=== PATIENT | female | born 1995 | race Caucasian/White ===

== ENCOUNTER 2023-09-05 11:41 | Emergency (ER) | payer OTHER ==
[~2023-09-05] VITALS: Ht 165.1 cm; Wt 89.8 kg
[2023-09-05] MEDS ORDERED: MORPHINE SULFATE INJ 2 MG/ML DISP.SYRIN IV ONE (12:30)
[2023-09-05] MEDS: IV NS 0.9% 1,000 ML BAG IV ONE (12:30)
[2023-09-05] MEDS ORDERED: ONDANSETRON HCL/PF 4 MG/2 ML VIAL IV ONE (12:30)
[2023-09-05] MEDS: KETOROLAC TROMETHAMINE 15 MG/ML VIAL IV ONE (13:00)
[2023-09-05] MEDS: diphenhydrAMINE HCL 50 MG/ML VIAL IV ONE (13:00)
[2023-09-05] MEDS: METOCLOPRAMIDE HCL 10 MG/2 ML VIAL IV ONE (13:00)
[2023-09-05] MEDS ORDERED: KETOROLAC TROMETHAMINE 15 MG/ML VIAL ONE (13:17)
[2023-09-05] MEDS ORDERED: diphenhydrAMINE HCL 50 MG/ML VIAL ONE (13:17)
[2023-09-05] MEDS ORDERED: METOCLOPRAMIDE HCL 10 MG/2 ML VIAL ONE (13:18)
[2023-09-05] MEDS ORDERED: CIPR500T5 PO (14:02)
[2023-09-05] MEDS ORDERED: ONDA4TAB5 PO (14:02)
[2023-09-05] MEDS ORDERED: IBUP-1955 PO (14:02)
[2023-09-05 14:24] VITALS: BP 119/64; TEMP 98.5; O2SAT 95
== END 2023-09-05 14:25 | disposition home or self-care (01) ==
LOC: ER 11:56
DX: R11.2 Nausea with vomiting, unspecified (principal); R19.7 Diarrhea, unspecified; R10.9 Unspecified abdominal pain; G43.909 Migraine, unspecified, not intractable, without status migrainosus; R53.83 Other fatigue; R53.1 Weakness; Z60.2 Problems related to living alone
CPT/HCPCS: 99284; 96374; 96361; 96375 ×2; J1200; J2765; J7030; J1885

== ENCOUNTER 2023-12-05 23:43 | Emergency (ER) | payer OTHER ==
[~2023-12-05] VITALS: Ht 165.1 cm; Wt 87.1 kg
[~2023-12-05 23:43] MED LIST: CIPR500T5 PO; IBUP-1955 PO; ONDA4TAB5 PO
[2023-12-06 02:15] LABS: APPEARANCE,URINE TURBID (CLEAR); BILIRUBIN,URINE NEGATIVE (NEGATIVE); BLOOD, URINE 3+ Ery/uL (NEGATIVE); COLOR,URINE RED (YELLOW); KETONES,URINE 1+ mg/dL (NEGATIVE); LEUKOCYTE ESTERASE ,URINE 2+ (NEGATIVE); NITRITE, URINE POSITIVE (NEGATIVE); PROTEIN,URINE 3+ mg/dl (NEGATIVE); UGLUCOSE NEGATIVE (NEGATIVE)
[2023-12-06 02:19] LABS: BASOPHILS # (AUTO) 0.1 K/uL (0.0-0.2); BASOPHILS % (AUTO) 0.9 % (0.0-2.0); EOSINOPHILS # (AUTO) 0.2 K/uL (0.0-0.7); EOSINOPHILS % (AUTO) 1.9 % (0.0-6.0); HEMATOCRIT 37 % (33-45); HEMOGLOBIN 12.7 g/dL (11.5-14.8); LYMPHOCYTES # (AUTO) 4.1 K/uL (0.8-4.8); LYMPHOCYTES % (AUTO) 45.2 % (20.0-44.0); MEAN CORPUSCULAR HEMOGLOBIN 31 PG (26.0-33.0); MEAN CORPUSCULAR HGB CONC 35 g/dl (31.0-36.0); MEAN CORPUSCULAR VOLUME 91 fL (82-100); MONOCYTES # (AUTO) 0.5 K/uL (0.1-1.30); MONOCYTES % (AUTO) 5.7 % (2.0-12.0); NEUTROPHILS # (AUTO) 4.2 K/uL (1.8-8.9); NEUTROPHILS % (AUTO) 46.3 % (43.0-81.0); PLATELET COUNT (AUTO) 198 K/uL (150-450); RED BLOOD CELL COUNT(AUTO) 4.03 MIL/uL (4.0-5.2); WHITE BLOOD COUNT (AUTO) 9.2 K/uL (4.3-11.0)
[2023-12-06 02:26] LABS: CALCIUM, SERUM 8.6 mg/dL (8.5-10.1); CREATININE 0.8 mg/dL (0.6-1.3)
[2023-12-06 02:26] LABS: ADD URINE CULTURE YES; BACTERIA,URINE Few /HPF (None Seen); RBC,URINE TOO NUMEROUS TO COUN /HPF (0-2); SQUAMOUS EPITHELIAL CELL,UR Few /HPF (None Seen)
[2023-12-06 02:40] LABS: ALBUMIN 3.6 g/dL (3.4-5.0); BILIRUBIN,TOTAL 0.3 mg/dL (0.2-1.0)
[2023-12-06] MEDS ORDERED: NORE-122 PO (04:06)
[2023-12-06 04:56] VITALS: BP 118/70; TEMP 98; O2SAT 100
== END 2023-12-06 04:57 | disposition home or self-care (01) ==
LOC: ER 23:44
DX: N93.8 Other specified abnormal uterine and vaginal bleeding (principal); G43.909 Migraine, unspecified, not intractable, without status migrainosus; R10.2 Pelvic and perineal pain; Z87.42 Personal history of other diseases of the female genital tract; Z88.0 Allergy status to penicillin; Z60.2 Problems related to living alone
CPT/HCPCS: 36415; 76856-TC; 80053-TC; 81001; 84702-TC; 85025-TC; 87086-TC